=== PATIENT | female | born 2000 | race Two or more races ===

== ENCOUNTER 2022-07-18 13:21 | Emergency (ER) | payer OTHER ==
[~2022-07-18] VITALS: Ht 172.7 cm; Wt 59.0 kg
[~2022-07-18 13:21] MED LIST: TYLENOL160 MG PO
== END 2022-07-18 18:32 | disposition home or self-care (01) ==
LOC: ER 13:21
DX: R10.2 Pelvic and perineal pain (principal)

== ENCOUNTER 2023-11-23 12:23 | Emergency (ER) | payer OTHER ==
[~2023-11-23] VITALS: Ht 172.7 cm; Wt 57.6 kg
[2023-11-23] MEDS ORDERED: KETOROLAC TROMETHAMINE 60 MG VIAL IM STA (13:49)
[2023-11-23 14:52] LABS: HEMATOCRIT 40.4 % (36.0-45.00); HEMOGLOBIN 13.9 g/dL (12.0-15.00); MEAN CELL VOLUME 99.2 fL (80.00-100.00); MEAN CORPUSCULAR HEMOGLOBIN 34.3 pg (27.00-32.0); MEAN CORPUSCULAR HGB CONC 34.5 g/dl (32.0-36.0); PLATELET COUNT 151 K/uL (150-450); RED BLOOD COUNT 4.07 M/uL (4.00-6.00); RED CELL DISTRIBUTION WIDTH 13.3 % (11.5-14.5)
[2023-11-23 15:01] LABS: CALCIUM 9.3 mg/dL (8.5-10.1); CREATININE SERUM 0.53 mg/dL (0.55-1.02); GFR 140.55; POTASSIUM 4.26 mEq/L (3.5-5.1)
[2023-11-23 15:33] LABS: URINE APPEARANCE Clear; URINE BILIRRUBIN Negative (NEGATIVE); URINE BLOOD Negative; URINE COLOR Yellow; URINE GLUCOSE Negative (NEGATIVE); URINE LEUKOCYTE Negative; URINE NITRATE Negative; URINE PROTEIN Negative (NEGATIVE); URINE UROBILINOGEN 0.2 E.U./dl
[2023-11-23 15:34] LABS: URINE EPITHELIAL CELLS 57.9 uL (0.0-38.8); URINE RBC 139.5 uL (0.0-20.8); URINE WBC 30.1 uL (0.0-23.2)
== END 2023-11-23 17:24 | disposition home or self-care (01) ==
LOC: ER 12:24
PROVIDERS: General Practice
DX: R10.2 Pelvic and perineal pain (principal); E28.2 Polycystic ovarian syndrome